=== PATIENT | male | born 1960 | race Hispanic/Latino ===

== ENCOUNTER 2018-04-12 13:06 | Emergency (ER) | payer MEDICAID, OTHER ==
[~2018-04-12] VITALS: Ht 177.8 cm; Wt 68.0 kg
--- NOTE | 2018-04-12 13:14 | NUR ---
ED Nurse Note: Pt BIBA due to complaints of abdominal pain x 10 days. Pt is complaining of 10/10 pain. Non radiating. A + O x4. Ambulatory. Pt has been drinking for 10 days straight and has not beein eating anything.
[2018-04-12 13:15] VITALS: BP 125/72
[2018-04-12] MEDS ORDERED: NKM (13:17)
--- NOTE | 2018-04-12 13:39 | Emergency Room Report ---
History of Present Illness General Chief Complaint: Abdominal Pain Source: Patient Present Illness HPI 57-year-old male presents to the emergency department complaining of 6 out of 10 in severity epigastric abdominal pain 2 days. Patient reports that he drinks regularly and states that he's been drinking for the last 10 days. Patient reports he has history of EtOH dependence he is requesting some information regarding Alcoholics Anonymous. Patient denies past medical history other than some intermittent depression. Patient denies SI, HI, patrick, PV psychiatric hospitalizations or hallucinations. Patient denies alcohol withdrawal seizures he denies liver or heart disease. He denies nausea, vomiting, diarrhea or black tarry stools. Patient denies history of GI bleeds. Allergies: Coded Allergies: No Known Allergies (Unverified , 04/26/15) Patient History Past Medical History: see triage record Past Surgical History: none Pertinent Family History: none Immunizations: UTD Reviewed Nursing Documentation: PMH: Agreed; PSxH: Agreed Nursing Documentation-PMH Past Medical History: No Stated History Hx Seizures: Yes Review of Systems All Other Systems: negative except mentioned in HPI Physical Exam Vital Signs Date Time Temp Pulse Resp B/P (MAP) Pulse Ox O2 Delivery O2 Flow Rate FiO2 04/12/18 13:07 99.0 120 18 129/71 99 Room Air 04/12/18 13:15 100 Medical Decision Making PA Attestation Dr. Stokes is my supervising Physician whom patient management has been discussed with. ER Course 57-year-old male presents to the emergency department complaining of 6 out of 10 in severity epigastric abdominal pain 2 days. Patient reports that he drinks regularly and states that he's been drinking for the last 10 days. Patient reports he has history of EtOH dependence he is requesting some information regarding Alcoholics Anonymous. Patient denies past medical history other than some intermittent depression. Patient denies SI, HI, patrick, PV psychiatric hospitalizations or hallucinations. Patient denies alcohol withdrawal seizures he denies liver or heart disease. He denies nausea, vomiting, diarrhea or black tarry stools. Patient denies history of GI bleeds. Pt. presents to the ED intoxicated with alcohol, pt. is NAD, pt. is alert, no obvious signs of trauma, able to ambulate to chair. Ddx considered but are not limited to ETOH, Trauma, Syncope, dementia, OD Vital signs: are WNL, pt. is afebrile H&PE are most consistent with ETOH abuse. ORDERS: nnone required at this time ED INTERVENTIONS: Observance while he detoxifies. Pt. was allowed to sleep/ rest. PT. became awake and alert x 3 DISCHARGE: At this time pt. is stable for d/c to home. Will provide printed patient care instructions, and any necessary prescriptions. Care plan and follow up instructions have been discussed with the patient prior to discharge. Last Vital Signs Date Time Temp Pulse Resp B/P (MAP) Pulse Ox O2 Delivery O2 Flow Rate FiO2 04/12/18 13:15 99.0 66 18 125/72 99 Room Air 04/12/18 13:15 100 Disposition: HOME, SELF-CARE Condition: Stable Additional Instructions: Take medications as directed. Discontinue excessive use of alcohol and please review provided information resources regarded alcohol dependence and abuse. Follow up with a Primary Care Provider in 3-5 days, even if your symptoms have resolved. --Please review list of primary care clinics, if you do not already have a primary care provider Return sooner to ED if new symptoms occur, or current symptoms become worse. - Please note that this Emergency Department Report was dictated using [employer] belt sander tender technology software, occasionally this can lead to erroneous entry secondary to interpretation by the dictation equipment. Vangie Mathew Apr 12, 2018 13:39
[2018-04-12 14:01] LABS: APPEARANCE,URINE CLEAR; BILIRUBIN, URINE NEGATIVE (NEGATIVE); GLUCOSE, URINE (UA) NEGATIVE (NEGATIVE); KETONES,URINE 3+ (NEGATIVE); LEUKOCYTE ESTERASE ,URINE 1+ (NEGATIVE); NITRITE,URINE NEGATIVE (NEGATIVE); PH,URINE 6.5 (4.5-8.0); PROTEIN,URINE 2+ (NEGATIVE); UROBILINOGEN,URINE 4 MG/DL (0.0-1.0)
[2018-04-12 14:04] LABS: BASOPHILS % (AUTO) 1.3 % (0.0-2.0); EOSINOPHILS % (AUTO) 0.3 % (0.0-3.0); HEMATOCRIT 39.7 % (42.0-52.0); HEMOGLOBIN 13.4 G/DL (14.2-18.0); LYMPHOCYTES % (AUTO) 28.7 % (20.0-45.0); MEAN CORPUSCULAR VOLUME 93 FL (80-99); MONOCYTES % (AUTO) 5.2 % (1.0-10.0); NEUTROPHILS % (AUTO) 64.5 % (45.0-75.0); PLATELET COUNT 176 K/UL (150-450); RED BLOOD COUNT 4.27 M/UL (4.70-6.10); RED CELL DISTRIBUTION WIDTH 11.3 % (11.6-14.8); WHITE BLOOD COUNT 6.8 K/UL (4.8-10.8)
[2018-04-12 14:09] LABS: COLOR,URINE YELLOW
--- NOTE | 2018-04-12 14:11 | NUR ---
ED Nurse Note: After given sandwich, blood drawn, urine collected, pepcid given and juice, pt decided to elope. No acute distress noted. Left Er w/ all belongings.
[2018-04-12 14:12] VITALS: BP 135/75
[2018-04-12 14:15] LABS: ANION GAP 14 mmol/L (5-15); BLOOD UREA NITROGEN 30 mg/dL (7-18); CALCIUM 8.7 MG/DL (8.5-10.1); CARBON DIOXIDE 28 MMOL/L (21-32); CHLORIDE 102 MMOL/L (98-107); CREATININE 1.2 MG/DL (0.55-1.30); POTASSIUM 3.7 MMOL/L (3.5-5.1); SODIUM 144 MMOL/L (136-145)
[2018-04-12 14:19] LABS: ALANINE AMINOTRANSFERASE 66 U/L (12-78); ALBUMIN 3.9 G/DL (3.4-5.0); ALBUMIN/GLOBULIN RATIO 1.2 (1.0-2.7); ALKALINE PHOSPHATASE 81 U/L (46-116); ASPARTATE AMINO TRANSFERASE 100 U/L (15-37); BILIRUBIN,TOTAL 0.5 MG/DL (0.2-1.0)
== END 2018-04-12 13:55 | disposition left against medical advice (07) ==
LOC: EDUNIT# 13:06 → EDBD 13:06 → EMR 13:50
DX: R10.13 Epigastric pain (principal); F10.20 Alcohol dependence, uncomplicated
CPT/HCPCS: 36415; 80053; 80329; 81003; 83690; 85025; 99283